=== PATIENT | male | born 1960 | race Hispanic/Latino ===

== ENCOUNTER 2023-03-12 07:54 | Day surgery (SDC) | payer OTHER ==
[2023-03-09 15:02] LABS: Absolute Lymphocytes (CBC) 1.6 K/uL (0.7-4.9); Hematocrit 44.4 % (39.6-49.0); Lymphocytes % 27.3 % (15.3-44.8); MCV 91.1 fL (80-100); Platelets 227 thou/uL (152-406); RBC Red Blood Cell Count 4.88 M/uL (4.33-5.43)
[2023-03-09 15:16] LABS: Potassium 4.7 mEq/L (3.5-5.1)
--- NOTE | 2023-03-09 16:14 | RAD REPORT ---
EXAM DESCRIPTION: Marixa Sanchez (2 Views)03/09/2023 2:36 pm CLINICAL HISTORY: Preop for abdominal surgery COMPARISON: 2008 FINDINGS: The lungs appear clear of acute infiltrate. The heart is normal size IMPRESSION: No acute abnormalities displayed
[2023-03-12] MEDS ORDERED: CEFAZOLIN SODIUM 1 GM/VIAL ONE (08:15)
[2023-03-12] MEDS ORDERED: Ringers Lactate 1,000 ML IV ONE (08:15)
[2023-03-12] MEDS ORDERED: LIDOCAINE 2% MPF 5 ML VIAL ONE (09:00)
[2023-03-12] MEDS ORDERED: FENTANYL CITR 100 MCG/2 ML ONE (09:00)
[2023-03-12] MEDS ORDERED: KETOROLAC 30 MG/ML INJ ONE (09:00)
[2023-03-12] MEDS ORDERED: propofoL 200 MG/20 ML VIAL IV ONE (09:00)
[2023-03-12] MEDS ORDERED: MIDAZOLAM HCL 2 MG/2 ML INJ ONE (09:00)
[2023-03-12] MEDS ORDERED: ONDANSETRON 4 MG/2 ML VIAL ONE (09:00)
[2023-03-12] MEDS ORDERED: BUPIVACAINE 0.5% PF 10 ML VIAL ONE ×2 (09:15→10:20)
[2023-03-12] MEDS ORDERED: GLYCOPYRROLATE 0.2 MG/ML SYR ONE (10:12)
[2023-03-12] MEDS ORDERED: ROCURONIUM 50 MG/5 ML VIAL IV ONE (10:15)
--- NOTE | 2023-03-12 10:34 | P.BOP ---
Preoperative diagnosis: multiple tender subQ masses Postoperative diagnosis: same Primary procedure: Excisional biopsy tender subQ masses: 1. R mid abd 3x3cm Secondary procedure: 2. R lat abd 2.5 x2.5 cm, 3. R subcostal abd 3x3cm Estimated blood loss: <10cc Specimen: masses x 3 Findings: masses Anesthesia: General Complications: None Transferred to: Recovery Room Condition: Good
--- NOTE | 2023-03-12 11:13 | OP ---
Date of Procedure: 03/12/2023 Surgeon: Gunnar Pettit MD Preoperative Diagnosis: Multiple tender subcutaneous masses. Postoperative Diagnosis: Multiple tender subcutaneous masses. Procedures: Excisional biopsy of tender subcutaneous masses: 1.Right mid abdomen, 3 x 3 cm. 2.Right lateral abdomen, 2.5 x 2.5 cm. 3.Right subcostal abdomen, 3 x 3 cm. Estimated Blood Loss: Less than 10 cc. Specimen: Masses x3. Findings: Subcutaneous masses. Anesthesia: General plus local. Complications: None. Indication: This is the case of a male, who came to us with a large and increasing tenderness, subcu taneous masses in the abdomen. Benefits, alternatives, and risks of excision were fully explained, w hich include, but not limited to, infection, bleeding, damage to adjacent structures, anesthesia comp lication, recurrence, [place], and even . He also understands this may not relieve any symptoms. He might need more than one surgical intervention. He marked the masses with me in the holding room. He signed a consent. Description Of Procedure: Patient brought to the operating room, placed in supine position. Anesthe bhargav was done without complication. Abdominal area was prepped and draped in usual sterile fashion. After a time-out, we proceeded to make an incision all of them using the same technique which consist ed of individually making a sharp incision of the skin. Incision was carried down to subcutaneous ti ssue where we identified the mass and we carefully removed the mass from the rest of the subcutaneous tissue in one unit. Area was irrigated and hemostasis was obtained and then we closed this with mid layers 3-0 chromic and subcuticular 3-0 chromic and a Steri-Strip. We did the right mid abdomen, ri ght lateral abdomen, and right subcostal abdomen using the same technique with the same closure. The patient tolerated each procedure well through 3 different incisions. The patient sent to Recovery i n stable condition. Sponge counts and instrument counts were correct. Hemostasis was obtained befor e closure. JEANETH/MODL Voice ID: [id number] Report ID: [id number]
--- NOTE | 2023-03-12 11:19 | DS ---
Diagnosis: Tender subcutaneous masses. Procedure: Excisional biopsy of tender subcutaneous masses. Disposition: Home. Condition: Stable. Activity: As tolerated. No heavy lifting. Plan: Follow up in my office in 1 week. Call for appointment at [phone]. Keep area dry for 48 rupal rs, then may shower. Keep Steri-Strip intact. JEANETH/COLT Voice ID: [id number] Report ID: [id number]
--- NOTE | 2023-03-12 12:33 | EKG ---
Test Date: 2023-03-09 Test Time: 15:22:47 [employer] Commander Deputy Sheriff: MILIND MEASUREMENT RESULTS: Intervals: Rate: 60 ID: [id number] QRSD: 86 QT: 408 QTc: 408 [place]: P: 53 ID: [id number] QRS: 51 T: 65 INTERPRETIVE STATEMENTS: Normal sinus rhythm Normal ECG Compared to ECG 10/01/2008 17:00:58 Sinus bradycardia no longer present Incomplete right bundle-branch block no longer present Electronically Signed On 03-12-23 12:27:37 OUTSOLE SCHEDULER by Dawood Beard
[2023-03-12 13:52] VITALS: BP 128/84; TEMP 97.5; O2SAT 99
== END 2023-03-12 11:58 | disposition home or self-care (01) ==
LOC: OR 07:54
PROVIDERS: ATTEND Surgery
PROC: 0JB80ZZ Excision of Abdomen Subcutaneous Tissue and Fascia, Open Approach (ICD-10-PCS; principal; 2023-03-12 10:30)
DX: D17.1 Benign lipomatous neoplasm of skin and subcutaneous tissue of trunk (principal)
CPT/HCPCS: 93005; 85025; 80048; 36415; 88304; 71046; 11403 ×3; J2704; J2001; J2250; J3010; J2405; J7120; J0690

== ENCOUNTER 2024-03-14 08:03 | Day surgery (SDC) | payer OTHER ==
--- NOTE | 2024-03-12 09:35 | RAD REPORT ---
EXAMINATION: TWO VIEW CHEST XR CLINICAL INDICATION: Pre-op pending knee arthroscopy TECHNIQUE: 2 views of the chest was performed. COMPARISON: 03/09/2023 FINDINGS: The lungs are well inflated and clear. The heart is normal in size. No displaced fractures evident. IMPRESSION: No acute or significant abnormalities.
[2024-03-12 09:40] LABS: Absolute Basophils 0.1 K/uL (0-0.5); Absolute Eosinophils 0.2 K/uL (0-0.5); Absolute Lymphocytes (CBC) 1.2 K/uL (0.7-4.9); Absolute Monocytes 0.8 K/uL (0.1-1.3); Absolute Neutrophil 2.4 K/uL (1.8-8.0); Basophils % 1.2 % (0-1.3); Eosinophils % 5.2 % (0-4.4); Hematocrit 43.4 % (39.6-49.0); Hemoglobin 14.6 g/dL (13.6-17.9); MCH 31.2 pg (27.0-35.0); MCHC 33.6 g/dL (32.0-36.0); MCV 92.9 fL (80-100); MPV 9.3 fL (7.6-11.3); Monocytes % 16.4 % (3.3-12.3); Neutrophils % 51.2 % (41.7-73.7); Platelets 222 thou/uL (152-406); RBC Red Blood Cell Count 4.67 M/uL (4.33-5.43); Red Cell Distribution Width 13.6 % (12.1-15.2)
[2024-03-12 09:42] LABS: PT Prothrombin Time 11.4 SECONDS (9.4-12.5); PTT, Activated Partial Thromb 28.2 SECONDS (24.3-36.9); Protime INR 1.02
[2024-03-12 09:48] LABS: Anion Gap 6.4 mEq/L (5.0-15.0); Potassium 4.4 mEq/L (3.5-5.1)
--- NOTE | 2024-03-13 11:28 | EKG ---
Test Date: 2024-03-12 Test Time: 10:04:31 Custom Bookbinder: GUEVARA MEASUREMENT RESULTS: Intervals: Rate: 58 NC: 166 QRSD: 88 QT: 424 QTc: 416 Cardinal: P: 7 NC: 166 QRS: 19 T: 34 INTERPRETIVE STATEMENTS: Sinus bradycardia Cannot rule out Anterior infarct, age undetermined Abnormal ECG Compared to ECG 03/09/2023 15:22:47 Myocardial infarct finding now present Sinus rhythm no longer present Electronically Signed On 03-13-24 11:27:12 AERIAL INSTALLER by Matt Bridges
[2024-03-14] MEDS: Ringers Lactate 1,000 ML IV ONE (08:30)
[2024-03-14] MEDS ORDERED: LIDOCAINE 2% MPF 5 ML VIAL ONE (09:22)
[2024-03-14] MEDS ORDERED: KETOROLAC 30 MG/ML INJ ONE (09:22)
[2024-03-14] MEDS ORDERED: MIDAZOLAM HCL 2 MG/2 ML INJ ONE (09:22)
[2024-03-14] MEDS ORDERED: ONDANSETRON 4 MG/2 ML VIAL ONE (09:22)
[2024-03-14] MEDS ORDERED: dexAMETHasone 10 MG/ML VIAL ONE (09:22)
[2024-03-14] MEDS ORDERED: FENTANYL CITR 100 MCG/2 ML ONE (09:22)
[2024-03-14] MEDS ORDERED: propofoL 200 MG/20 ML VIAL IV ONE (09:22)
[2024-03-14] MEDS: CEFAZOLIN SODIUM 2 GM/VIAL ONE (09:45)
[2024-03-14] MEDS: BUPIVACAINE 0.25% PF 10 ML VIAL ONE (10:16)
--- NOTE | 2024-03-14 10:52 | P.BOP ---
Preoperative diagnosis: Right knee lateral meniscus tear, right knee osteoarthritis Postoperative diagnosis: Same Primary procedure: Right knee arthroscopic partial lateral meniscectomy Secondary procedure: Right knee arthroscopic chondroplasty lateral femoral condyle Leguillon Debeader: NONE,NONE Estimated blood loss: 3 cc Specimen: None Findings: See dictation Anesthesia: General Complications: None Implants: None Fluids & blood products: Per anesthesia record Transferred to: Recovery Room Condition: Good
--- NOTE | 2024-03-14 10:58 | P.OP ---
Preoperative diagnosis: Right knee lateral meniscus tear, right knee osteoarthritis Postoperative diagnosis: Same Primary procedure: Right knee arthroscopic partial lateral meniscectomy Secondary procedure: Right knee arthroscopic chondroplasty lateral femoral condyle Anesthesia: General Estimated blood loss: 3 cc Specimen: None Findings: See dictation Operative Technique: Indication For Procedure: The patient is a 64-year-old male who presented to my clinic with signs, symptoms, and MRI findings consistent with a right knee lateral meniscus tear and underlying right knee osteoarthritis. Patient failed conservative treat measures including corticosteroid injection. Given his pain and mechanical symptoms we elected to proceed with right knee arthroscopic partial lateral meniscectomy. I discussed with the patient risks and benefits associated with operative and nonoperative treatment including continued pain from his osteoarthritis. He expressed understanding and elected to proceed with operative treatment. Description Of Procedure: After informed consent was obtained, the patient was identified in the preoperative holding area. The right lower extremity was marked. Patient was brought to the operating room transferred to the operative table in the supine fashion and placed under general anesthesia. The right lower extremity was then prepped and draped in usual sterile fashion. A time- out was initiated. The correct patient and procedure were performed and identified. The patient did receive preoperative prophylactic antibiotics. The right lower extremity was exsanguinated using an Esmarch and the tourniquet was inflated to 300 mmHg. Standard anterior medial and anterior lateral portals were created. The arthroscope was brought in via the anterolateral portal and a diagnostic arthroscopy was performed. 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 The arthroscope was then brought on the both medial and lateral gutters and there were no loose bodies found within the gutters. The arthroscope was first brought into the medial compartment with the patient was noted to have an intact medial meniscus which was stable to probe as well as no significant chondromalacia changes of the medial femoral condyle or medial ti bial plateau. The arthroscope was then brought into the intercondylar notch where the patient was noted to have an intact ACL and PCL which were stable to probe. The arthroscope was and brought of the lateral compartment where the patient was noted to have a complex tear of the lateral meniscus body and posterior horn. A partial lateral meniscectomy was performed using meniscal biters and arthroscopic shaver to smooth meniscal borders. 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 Any loose chondral flaps were debrided using arthroscopic shaver to perform a chondroplasty. Arthroscopic instruments were then removed without complication. Wounds were then irrigated thoroughly with normal saline. Portals were approximated using a 3-0 Monocryl. Sterile dressings were applied. The patient was awakened and transferred to PACU in stable condition. Postoperative Plan: The patient will be weightbearing as tolerated on the right lower extremity. He will follow-up in clinic 1 week for wound check and dressing change. We will follow the post meniscectomy protocol 2 weeks postoperatively. Complications: None Implants: None Fluids & blood products: Per anesthesia record Transferred to: Recovery Room Condition: Good
[2024-03-14 10:59] VITALS: O2SAT 100
[2024-03-14] MEDS: HYDROCODONE/APAP 10/325 TAB ONE (11:44)
[2024-03-14 13:38] VITALS: BP 141/80; TEMP 97
== END 2024-03-14 12:20 | disposition home or self-care (01) ==
LOC: OR 08:03
PROVIDERS: ATTEND Orthopaedic Surgery Sports Medicine
PROC: 0SBC4ZZ Excision of Right Knee Joint, Percutaneous Endoscopic Approach (ICD-10-PCS; principal; 2024-03-14 10:00)
DX: S83.281A Other tear of lateral meniscus, current injury, right knee, initial encounter (principal); M17.11 Unilateral primary osteoarthritis, right knee; M22.41 Chondromalacia patellae, right knee
CPT/HCPCS: 93005; 85025; 80048; 36415; 85610; 85730; 71046; 29881; J2704; J2003; J2250; J3010; J1100; J2405; J7120